=== PATIENT | male | born 1970 | race Caucasian/White ===

== ENCOUNTER 2017-02-04 11:58 | Emergency (ER) | payer OTHER ==
[~2017-02-04] VITALS: Ht 185.4 cm; Wt 120.2 kg
--- NOTE | 2017-02-04 13:57 | RADIOLOGY REPORT ---
EXAMINATION: XR FINGER, RIGHT CLINICAL INFORMATION: 46-year-old male presented with laceration involving the right 2nd finger. Suspected foreign body. COMPARISON: None TECHNIQUE: Three views of the right 2nd finger including right hand. FINDINGS: The bony alignment is intact. The cortices are intact. The articular margins, joint space appear unremarkable. The soft tissues are unremarkable. Specifically no radiographic evidence of any acute fracture dislocation or radiopaque foreign body present. IMPRESSION: No radiographic evidence of any acute fracture dislocation and/or radiopaque foreign body is present involving the right 2nd finger.
--- NOTE | 2017-02-04 14:06 | ED UPPER/LOWER EXTREMITY COMPL ---
History of Present Illness General Chief Complaint: Laceration Procedure Stated Complaint: R HAND LAC Source: patient Exam Limitations: no limitations Vital Signs & Intake/Output Vital Signs & Intake/Output Vital Signs Date Time Temp Pulse Resp B/P Pulse O2 O2 Flow FiO2 Ox Delivery Rate 02/04 1453 98 Room Air 02/04 1410 85 20 129/94 96 Room Air 02/04 1214 98.4 80 18 150/99 96 Room Air Room Air Allergies Coded Allergies: NO KNOWN ALLERGIES (02/04/17) Triage Note: TRIAGE: 46 Y/O MALE PRESENTS C/O SLICING FINGER ON A SHATTERED LIGHT BULB. LESS THAN 1 INCH LACERATION NOTED. PER PATIENT ACTIVE BLEEDING HAS SLOWED. TELFA APPLIED, COBAN WRAPPED. LAST TETANUS UNKNOWN. Triage Nurses Notes Reviewed? yes Onset: Abrupt Duration: constant Timing: single episode today Severity: mild Severity Numbers: 1 HPI: Patient is a 46-year-old male with an unremarkable past medical history presents emergency and that today while trying to insert a car lightbulb with his right hand the light bulb shattered resulting in a laceration to the lateral aspect of his right second index finger digit. Bleeding was controlled prior to arrival. Tetanus is unknown. (SALBADOR MILLIGAN) Reconcile Medications No Known Home Medications (PETER HERRERA,[place]) Past History Travel History Traveled to [place] past 21 day No Medical History Any Pertinent Medical History? none Neurological: NONE EENT: NONE Cardiovascular: NONE Respiratory: NONE Gastrointestinal: NONE Hepatic: NONE Renal: NONE Musculoskeletal: NONE Psychiatric: NONE Endocrine: NONE Blood Disorders: NONE Cancer(s): NONE FRUIT SHIPPER/Reproductive: NONE Surgical History Surgical History: non-contributory Psychosocial History What is your primary language Hungarian Tobacco Use: Never used ETOH Use: occasional use Illicit Drug Use: denies illicit drug use Family History Hx Contributory? No (SALBADOR MILLIGAN) Review of Systems Review of Systems Constitutional: Reports: no symptoms. EENTM: Reports: no symptoms. Respiratory: Reports: no symptoms. Cardiovascular: Reports: no symptoms. Gastrointestinal/Abdominal: Reports: no symptoms. Genitourinary: Reports: no symptoms. Musculoskeletal: Reports: see HPI, joint pain. Skin: Reports: see HPI. Neurological/Psychological: Reports: no symptoms. Hematologic/Endocrine: Reports: see HPI, bleeding. Immunological: Reports: no symptoms. All Other Systems: Reviewed and Negative (SALBADOR MILLIGAN) Physical Exam Physical Exam General Appearance: no apparent distress, alert, comfortable Neurologic/Tendon: normal sensation, normal motor functions, normal tendon functions, responds to pain, no evidence tendon injury, no pulse deficit Skin: normal color, warm/dry Comments: Well-developed well-nourished no apparent distress. HEENT: Atraumatic, extraocular motion intact Neck: Supple, no lymphadenopathy Back: Nontender Respiratory: No respiratory distress Neuro: Alert and oriented x3 Psych: Mood affect normal, normal memory normal judgment. Diagram Hands Front 1) Minimal superficial 5 mm laceration noted full active range of motion with flexion and extension full resisted range of motion noted with flexion extension no tendon deficit no exposed bone non-gaping wound (SALBADOR MILLIGAN) Progress Differential Diagnosis: arterial insufficiency, compartment syndrome, contusion, dislocation, DVT, fracture, gout, septic arthritis, sprain, tendon injury Plan of Care: Current Medications Sig/Belinda Start time Last Medication Dose Stop Time Status Admin Tetanus/Diphtheria 0.5 ML ONCE ONE 02/04 143 UNVr Toxoids Adsorbed 02/04 143 (Decavac) No tendon deficit noted on exam, patient declined pain medications when offered tetanus was updated The wound site showed no concern of foreign body x-rays were unremarkable for foreign body wound was cleaned with peroxide and sterile water 3 layers of Dermabond was applied metal finger splint was applied with bandage patient tolerated well PRE/post neurovascular was intact Margins were revised with Dermabond placement patient tolerated well (SALBADOR MILLIGAN) Comments: PATIENT: KRISTINE FUENTES PRESENT AGE: 46 PATIENT ACCOUNT NO: [id number] : 72 LOCATION: [facility] ORDERING PHYSICIAN: SALBADOR BARONE SERVICE DATE: 02/04/17 EXAM TYPE: RAD - XRY-FINGERS, RIGHT EXAMINATION: XR FINGER, RIGHT CLINICAL INFORMATION: 46-year-old male presented with laceration involving the right 2nd finger. Suspected foreign body. COMPARISON: None TECHNIQUE: Three views of the right 2nd finger including right hand. FINDINGS: The bony alignment is intact. The cortices are intact. The articular margins, joint space appear unremarkable. The soft tissues are unremarkable. Specifically no radiographic evidence of any acute fracture dislocation or radiopaque foreign body present. IMPRESSION: No radiographic evidence of any acute fracture dislocation and/or radiopaque foreign body is present involving the right 2nd finger. DICTATED BY: MAXIMINO ALFONSO MD DATE/TIME DICTATED:02/04/171342 (SALBADOR MILLIGAN) Departure Departure Disposition: HOME OR SELF CARE Condition: Stable Clinical Impression Primary Impression: Laceration of finger, index Referrals: SARAVANAN HERRERA,WILLIAM Hebert (PCP/Family) Additional Instructions: As discussed begin [id number] ibuprofen if needed for pain and inflammation. The glue that has been applied to in the emergency room will follow-up in approximately 3-4 days. If you note signs of infection redness, pain, swelling, discharge return to emergency room. Begin using the splints for the following 48 hours to improve healing Follow-up with her primary care doctor in 1 week for recheck of symptoms Keep area dry and clean YOU can. Departure Forms: Customer Survey General Discharge Information (SALBADOR MILLIGAN) Departure Prescriptions: Current Visit Scripts No Known Home Medications PA/LABORATORY AIDE Co-Sign Statement Statement: ED Attending supervision documentation- [] I saw and evaluated the patient. I have also reviewed all the pertinent lab results and diagnostic results. I agree with the findings and the plan of care as documented in the PA's/LABORATORY AIDE's documentation. [X] I have reviewed the ED Record and agree with the PA's/LABORATORY AIDE's documentation. [] Additions or exceptions (if any) to the PAs/LABORATORY AIDE's note and plan are summarized below: [] (PETER HERRERA,[place])
[2017-02-04 14:10] VITALS: BP 129/94
== END 2017-02-04 14:56 ==
LOC: ERH 11:58
DX: S61.210A Laceration without foreign body of right index finger without damage to nail, initial encounter (principal); W25.XXXA Contact with sharp glass, initial encounter; Y93.89 Activity, other specified; Y92.9 Unspecified place or not applicable
CPT/HCPCS: 73140-RT; 90471; 90714